=== PATIENT | female | born 1980 | race Caucasian/White ===

== ENCOUNTER 2016-07-13 18:02 | Emergency (ER) | payer OTHER ==
[~2016-07-13] VITALS: Ht 157.5 cm; Wt 73.0 kg
[~2016-07-13 18:02] MED LIST: ALBU8.5H5 INH; FAMO-18 PO; GUAI120S26 PO
[2016-07-13 18:18] VITALS: Ht 157.5 cm; Wt 73.0 kg
[2016-07-13] MEDS ORDERED: KETOROLAC 30 MG INJ IV STA (19:53)
[2016-07-13] MEDS ORDERED: SOD CHLORIDE 0.9% 1,000 ML IV STA (19:53)
[2016-07-13 20:33] LABS: BASOPHIL # 0.1 10^3/ul (0.0-0.1); BASOPHILS % 1.5 % (0.0-2.0); EOSINOPHILS # 0.1 10^3/ul (0.0-0.5); EOSINOPHILS % 0.9 % (0.0-7.0); HEMATOCRIT 33.3 % (37.0-47.0); HEMOGLOBIN 10.8 g/dl (12.0-16.0); LYMPHOCYTES # 1.8 10^3/ul (0.8-2.9); LYMPHOCYTES % 20.8 % (15.0-51.0); MEAN CORPUSCULAR HGB CONC 32.5 g/dl (32.0-37.0); MEAN CORPUSCULAR VOLUME 79.8 fl (82.0-101.0); MEAN PLATELET VOLUME 7.6 fl (7.4-10.4); MONOCYTE # 0.4 10^3/ul (0.3-0.9); MONOCYTES % 4.9 % (0.0-11.0); NEUTROPHIL # 6.3 10^3/ul (1.6-7.5); NEUTROPHILS % 71.9 % (39.0-77.0); PLATELET COUNT 381 10^3/UL (140-440); RED BLOOD COUNT 4.17 10^6/ul (4.20-5.40); UNCORRECTED WBC 8.8 10^3/ul (4.8-10.8); WHITE BLOOD COUNT 8.8 10^3/ul (4.8-10.8)
[2016-07-13 20:34] LABS: ADD UMIC YES; URINE BILIRUBIN (Dip) NEGATIVE (NEGATIVE); URINE BLOOD (Dip) TRACE (NEGATIVE); URINE COLOR LT. YELLOW (YELLOW); URINE GLUCOSE (Dip) NEGATIVE (NEGATIVE); URINE KETONES (Dip) NEGATIVE (NEGATIVE); URINE LEUKOCYTE ESTERASE (Dip) NEGATIVE (NEGATIVE); URINE NITRITE (Dip) NEGATIVE (NEGATIVE); URINE TOTAL PROTEIN (Dip) NEGATIVE (NEGATIVE); URINE UROBILINOGEN (Dip) 0.2 E.U./dL (0.1-1.0)
[2016-07-13 20:42] LABS: ALBUMIN 4.4 g/dl (3.3-4.9)
[2016-07-13 20:43] LABS: POTASSIUM 3.8 mmol/L (3.5-5.1)
[2016-07-13 20:45] LABS: ALBUMIN/GLOBULIN RATIO 1.22; BILIRUBIN,INDIRECT 0.1 mg/dl (0-1.1); BILIRUBIN,TOTAL 0.1 mg/dl (0.2-1.3); CREATININE 0.56 mg/dl (0.44-1.00)
[2016-07-13 20:46] LABS: CALCIUM 9.5 mg/dl (8.4-10.2)
[2016-07-13 20:56] LABS: SQUAMOUS EPITHELIAL CELL,UR FEW
--- NOTE | 2016-07-13 21:04 | RADRPT ---
PROCEDURE: CT abdomen and pelvis without contrast. CLINICAL INDICATION: Right flank pain. There is a question of nephrolithiasis. TECHNIQUE: CT of the abdomen and pelvis without contrast was performed on a multidetector high-res olution CT scanner. Coronal and sagittal reformatted images were obtained from the axial source imag es. Images were reviewed on a high-resolution PACS workstation. The total exam CTDI equals 9.43 mGy and the total exam DLP equals the 527.27 mGy-cm. One or more of the following dose reduction techniques were used: - Automated exposure control. - Adjustment of the mA and/or kV according to patient size. - Use of iterative reconstruction technique. COMPARISON: Abdominal ultrasound dated 01/23/2016. FINDINGS: The visualized lung bases are clear and the visualized heart is unremarkable. The liver is grossly unremarkable. There is no intra or extrahepatic biliary ductal dilatation. The gallbladder, spleen, pancreas, adrenal glands are grossly unremarkable. There is no nephrolithiasi s or hydronephrosis. There is no bowel wall thickening or evidence of obstruction. The appendix is mildly dilated in the right lower quadrant measuring up to 10 mm in diameter, but there is no periappendiceal inflammatory change or fluid. There is no free intraperitoneal air or free fluid. There is no mesenteric or ret roperitoneal adenopathy. The aorta is nonaneurysmal. The uterus, adnexa, and urinary bladder are u nremarkable. There are no concerning osseous lesions. IMPRESSION: 1. Nonspecific dilated appendix measuring up to 10 mm in diameter with no periappendiceal inflammat ory change or fluid. 2. The examination is otherwise unremarkable. RPTAT: HLBP .Maverick Caban MD, MD Date Time Electronically viewed and signed by .Maverick Caban MD, MD on 07/13/2016 21:04 .P/
[2016-07-13 21:13] LABS: CONDITION 1; LH ANALYZER COMMENTS 1
--- NOTE | 2016-07-13 22:40 | ERD ---
ER Documentation Chief Complaint Date/Time DATE: 07/13/16 TIME: 22:33 Chief Complaint RIGHT FLANK PAIN RADIATES TO THE MIDDLE OF THE ABD X 1 WEEK HPI 35 year old female previously healthy presenting with complaints of right lower quadrant pain with radiation to the right flank. Pain is described at pressure- like, aching, constant, 6/10. No exacerbating or alleviating factors. No associated fever, chills, nausea, vomiting, dysuria, hematuria, constipation or diarrhea. She has had the pain for about 1 week and it has been worsening. She is not taking anything for the pain. She is able to tolerate foods and liquids without any problems. ROS All systems reviewed and are negative except as per history of present illness. Medications Home Meds Active Scripts Famotidine* (Pepcid*) 20 Mg Tablet, 20 MG PO BID for 14 Days, TAB Prov:YOEL ISIDRO 01/23/16 Gokbnlflhqg-S-Mhfzmxdazq Hb* (Guaifenesin* DM Syrup) 120 Ml Syrup, 10 ML PO Q4H Y for COUGH, #1 BOTTLE Prov:GENNA RHODES NP 04/03/15 Albuterol Sulfate* (Albuterol Sulfate* HFA) 8.5 Gm Hfa.aer.ad, 1-2 PUFF INH Q4 Y for SHORTNESS OF BREATH, #1 EA Prov:GENNA RHODES NP 04/03/15 Allergies Allergies: Coded Allergies: No Known Allergy (Unverified , 07/13/16) PMhx/Soc History of Surgery: Yes (C/S X1, HERNIA) Anesthesia Reaction: No Hx Neurological Disorder: No Hx Respiratory Disorders: Yes (ASTHMA) Hx Cardiac Disorders: No Hx Psychiatric Problems: No Hx Miscellaneous Medical Probl: Yes (H.PYLORI 2015) Hx Alcohol Use: No Hx Substance Use: No Hx Tobacco Use: No Smoking Status: Never smoker FmHx Family History: No diabetes Physical Exam Vitals Vital Signs Date Time Temp Pulse Resp B/P Pulse Ox O2 Delivery O2 Flow Rate FiO2 07/13/16 18:18 98.6 92 19 130/77 99 Physical Exam Const: Well-appearing, nontoxic, no distress Head: Atraumatic Eyes: Normal Conjunctiva ENT: Normal External Ears, Nose and Mouth. Neck: Full range of motion..~ No meningismus. Resp: Clear to auscultation bilaterally Cardio: Regular rate and rhythm, no murmurs Abd: Soft, mild to moderate right lower quadrant tenderness to palpation without rebound or guarding, non distended. Normal bowel sounds Skin: No petechiae or rashes Back: No midline or flank tenderness Ext: No cyanosis, or edema Neur: Awake and alert Psych: Normal Mood and Affect Result Diagram: 07/13/16201407/13/162014 Results 24 hrs Laboratory Tests Test 07/13/16 20:15 Alanine Aminotransferase (ALT/SGPT) 22IU/L Albumin 4.4g/dl Albumin/Globulin Ratio 1.22 Alkaline Phosphatase 61IU/L Anion Gap 18 Aspartate Amino Transf (AST/SGOT) 28IU/L Basophils # 0.110^3/ul Basophils % 1.5% Blood Morphology Comment Blood Urea Nitrogen 9mg/dl Calcium Level 9.5mg/dl Carbon Dioxide Level 25mmol/L Chloride Level 102mmol/L Creatinine 0.56mg/dl Direct Bilirubin 0.00mg/dl Eosinophils # 0.110^3/ul Eosinophils % 0.9% Globulin 3.60g/dl Glucose Level 91mg/dl Hematocrit 33.3% Hemoglobin 10.8g/dl Indirect Bilirubin 0.1mg/dl Lymphocytes # 1.810^3/ul Lymphocytes % 20.8% Mean Corpuscular Hemoglobin 26.0pg Mean Corpuscular Hemoglobin Concent 32.5g/dl Mean Corpuscular Volume 79.8fl Mean Platelet Volume 7.6fl Monocytes # 0.410^3/ul Monocytes % 4.9% Neutrophils # 6.310^3/ul Neutrophils % 71.9% Nucleated Red Blood Cells # 0.010^3/ul Nucleated Red Blood Cells % 0.0/100WBC Platelet Count 42346^3/UL Potassium Level 3.8mmol/L Red Blood Count 4.1710^6/ul Red Cell Distribution Width 16.0% Sodium Level 141mmol/L Total Bilirubin 0.1mg/dl Total Protein 8.0g/dl Urine Bilirubin NEGATIVE Urine Clarity CLEAR Urine Color LT. YELLOW Urine Glucose NEGATIVE% Urine Hemoglobin TRACE Urine Ketones NEGATIVE Urine Leukocyte Esterase NEGATIVE Urine Microscopic RBC 2-5/HPF Urine Microscopic WBC 0-2/HPF Urine Nitrite NEGATIVE Urine Specific [place] 1.010 Urine Squamous Epithelial Cells FEW Urine Total Protein NEGATIVE Urine Urobilinogen 0.2 E.U./dL Urine pH 6.5 White Blood Count 8.810^3/ul Current Medications Medications (Trade) Dose Ordered Sig/Marlyn Route PRN Reason Start Time Stop Time Status Last Admin Dose Admin Sodium Chloride (NS) 1,000 ml @ 1,000 mls/hr Q1H STAT IV 07/13/16 19:53 07/13/16 20:52 DC 07/13/16 20:02 Ketorolac Tromethamine (Toradol) 30 mg ONCE STAT IV 07/13/16 19:53 07/13/16 19:55 DC 07/13/16 20:02 Procedures/MDM Patient is presenting with right lower quadrant and right flank pain for about 1 week. She is afebrile, well-appearing, with stable vitals. Her urinalysis does not show evidence of UTI. Her labs were unremarkable other than mild anemia. CT of her abdomen and pelvis was done to evaluate for appendicitis versus ureterolithiasis. CT showed evidence of a dilated appendix about 10 mm without associated evidence of infection or appendicolith. Patient has no evidence of leukocytosis. I called and spoke with , the surgeon tongue and groove machine feeder , and he recommended [facility] exams and monitoring for any worsening of her condition, however he stated that she can also go home and return to the ER in 24 hours for repeat abdominal exam. I discussed these options with the patient and she would prefer to go home. She understands the importance of returning for a repeat abdominal exam and the possibility of early appendicitis. She refused any prescription for pain medication. She stated she would return tomorrow for reevaluation or sooner if her symptoms worsened or she developed any new symptoms. Patient was stable upon discharge and tolerating fluids by mouth. Departure Diagnosis: Primary Impression: Abdominal pain, RLQ (right lower quadrant) Condition: Stable Patient Instructions: Abdominal Pain, Possible Appendicitis (Female) Additional Instructions: Return to the ER in 24 hours for a repeat abdominal exa. Return sooner if your symptoms get worse or you have new worrisome symptoms. STEPHANE CALIXTO MD Jul 13, 2016 22:40
== END 2016-07-13 22:05 | disposition home or self-care (01) ==
LOC: FTE 18:02
DX: R10.31 Right lower quadrant pain (principal); J45.909 Unspecified asthma, uncomplicated
CPT/HCPCS: 36415; 74176; 80053; 81001; 85025; 96374; J1885; J7030; Z7502; 81003

== ENCOUNTER 2016-07-14 17:23 | Emergency (ER) | payer OTHER ==
[~2016-07-14] VITALS: Wt 71.0 kg
--- NOTE | 2016-07-14 19:25 | ERD ---
ER Documentation Chief Complaint Date/Time DATE: 07/14/16 TIME: 19:22 Chief Complaint RECHECK FOR AP DENIES AP AT THIS TIME HPI This is a 35-year-old female who presents to the emergency department today for a recheck of abdominal pain that she was seen here for in the emergency department yesterday. Patient had some right lower quadrant and flank pain yesterday. States she doesn't really have any pains and has not taken any Tylenol or Motrin as she doesn't have any pain. Denies fevers or chills, nausea or vomiting. ROS All systems reviewed and are negative except as per history of present illness. Medications Home Meds Active Scripts Famotidine* (Pepcid*) 20 Mg Tablet, 20 MG PO BID for 14 Days, TAB Prov:YOEL ISIDRO 01/23/16 Uertrkoheko-H-Iqwgwhlxje Hb* (Guaifenesin* DM Syrup) 120 Ml Syrup, 10 ML PO Q4H Y for COUGH, #1 BOTTLE Prov:GENNA RHODES NP 04/03/15 Albuterol Sulfate* (Albuterol Sulfate* HFA) 8.5 Gm Hfa.aer.ad, 1-2 PUFF INH Q4 Y for SHORTNESS OF BREATH, #1 EA Prov:GENNA RHODES NP 04/03/15 Allergies Allergies: Coded Allergies: No Known Allergy (Unverified , 07/13/16) PMhx/Soc History of Surgery: Yes (,Hernia Repair,R Wrist Surg) Anesthesia Reaction: No Hx Neurological Disorder: No Hx Respiratory Disorders: Yes (Asthma) Hx Cardiac Disorders: No Hx Psychiatric Problems: No Hx Miscellaneous Medical Probl: Yes Hx Alcohol Use: No Hx Substance Use: No Hx Tobacco Use: No Smoking Status: Never smoker Physical Exam Vitals Vital Signs Date Time Temp Pulse Resp B/P Pulse Ox O2 Delivery O2 Flow Rate FiO2 07/14/16 19:26 98.0 76 20 132/69 99 Room Air 07/14/16 17:25 98.0 78 20 146/65 99 Physical Exam Const: No acute distress Head: Atraumatic Eyes: Normal Conjunctiva ENT: Normal External Ears, Nose and Mouth. Neck: Full range of motion..~ No meningismus. Resp: Clear to auscultation bilaterally Cardio: Regular rate and rhythm, no murmurs Abd: Soft, non tender, non distended. Normal bowel sounds. Right lower quadrant pain. No left lower quadrant pain. Skin: No petechiae or rashes Back: No midline or flank tenderness. No CVA tenderness Neur: Awake and alert Psych: Normal Mood and Affect Procedures/MDM 35-year-old female who presents to the emergency department today for recheck of abdominal pain for which she was seen here in the emergency department yesterday. She was complaining of right lower quadrant pain with radiation to the right flank. She was seen by Dr. Snell yesterday and laboratory work and a CT scan was done. Exception of anemia her labs were unremarkable. She had no elevated white blood cell count. The CT scan that was done showed evidence of a dilated appendix about 10 mm without associated evidence of infection or appendicolith. There was consultation with the surgeon on-call and at the time the decision was made to have the patient return home and return to the emergency department in 24 hours for repeat abdominal exam. Patient indicated that she had some dark urine however her UA was negative yesterday for infection. Patient was instructed to drink more fluids. On physical exam patient has no right lower quadrant tenderness. She has no tenderness in McBurney's. She is afebrile and otherwise well-appearing. She has had no nausea or vomiting. She indicated that she has not really taken any Tylenol or Motrin because she doesn't have any pain. At this time he did not fill the patient requires further laboratory workup or repeat imaging.This time I have low suspicion for any acute surgical abdomen. Patient was given a copy of her CT scan instructed to follow up with her primary care doctor. She was instructed to take Tylenol or Motrin should she have pain and was instructed to return to the emergency department immediately for any worsening of symptoms, fever, nausea or vomiting. At this time the patient is stable for discharge and outpatient management. Patient should follow up with their PCP in the next 1-2 days. They may return to the emergency department sooner for any persistent or worsening of symptoms. Patient understood and agreed with the plan. Discussed the patient with Dr. Aguirre and he is in agreement with the plan. Departure Diagnosis: Primary Impression: Abdominal pain Abdominal location: right lower quadrant Qualified Code: R10.31 - Right lower quadrant abdominal pain Condition: Fair Patient Instructions: Abdominal Pain Referrals: MAL ABDI (PCP) Additional Instructions: Call your primary care doctor TOMORROW for an appointment during the next 1-2 days.See the doctor sooner or return here if your condition worsens before your appointment time. Continue taking the Tylenol or Motrin for pain if needed Return for any worsening of symptoms TUCKER MA PA-C Jul 14, 2016 19:25
[2016-07-14 19:26] VITALS: BP 132/69; PULSE 76; RESP 20; TEMP 98
== END 2016-07-14 19:26 | disposition home or self-care (01) ==
LOC: FTE 17:23
DX: R10.31 Right lower quadrant pain (principal); J45.909 Unspecified asthma, uncomplicated
CPT/HCPCS: 99282

== ENCOUNTER 2016-09-18 10:53 | Emergency (ER) | payer OTHER ==
[~2016-09-18] VITALS: Wt 72.5 kg
[2016-09-18] MEDS ORDERED: ALBUTEROL 0.083% (NEB) 2.5 MG/3 ML AMP HHN STA (11:24)
[2016-09-18] MEDS ORDERED: IPRATROPIUM (NEB) 0.5 MG/2.5 ML AMP HHN ONE (11:30)
[2016-09-18] MEDS ORDERED: DEXAMETHASONE 10 MG/ML 1 ML INJ IM ONE (11:30)
--- NOTE | 2016-09-18 12:57 | RADRPT ---
PROCEDURE: Chest Radiograph. CLINICAL INDICATION: Cough. Wheezing. TECHNIQUE: Single frontal chest radiograph. COMPARISON: Chest radiograph 04/03/2015 FINDINGS: The cardiomediastinal silhouette is within normal limits. No infiltrate or effusion is seen. Th e bones are intact. IMPRESSION: 1. Unremarkable chest radiograph. RPTAT: KK .Gonsalo Mark MD, MD Date Time Electronically viewed and signed by .Gonsalo Mark MD, on 09/18/2016 12:57 .B/
[2016-09-18] MEDS ORDERED: MED4DP PO (13:38)
[2016-09-18] MEDS ORDERED: ALBU8.5H3 INH (13:38)
--- NOTE | 2016-09-18 13:47 | ERD ---
ER Documentation Chief Complaint Date/Time DATE: 09/18/16 TIME: 13:45 Chief Complaint WHEEZING AND COUGHING FOR THE PAST WEEK HPI This is a 36-year-old female presents to the ER with a cough for the last month and a half. Patient states she is also had wheezing. She has a past medical history of asthma. Tried her inhalers however they did not work. Patient states that pain is dry and constant. She denies any fevers or chills. She denies any chest pain. ROS 12 point review of systems was done, all negative except per HPI. Medications Home Meds Active Scripts Albuterol Sulfate* (Proair HFA*) 8.5 Gm Hfa.aer.ad, 2 PUFF INH Q4, #1 INHALER Prov:YOEL ISIDRO 09/18/16 Methylprednisolone* (Medrol* DOSE PACK) 4 Mg/Dose-Pack Tab.ds.pk, 4 MG PO . DIRECTED for 6 Days, PACKET Prov:YOEL ISIDRO 09/18/16 Famotidine* (Pepcid*) 20 Mg Tablet, 20 MG PO BID for 14 Days, TAB Prov:YOEL ISIDRO 01/23/16 Tpsyttvjfnd-S-Hpiwghbddc Hb* (Guaifenesin* DM Syrup) 120 Ml Syrup, 10 ML PO Q4H Y for COUGH, #1 BOTTLE Prov:GENNA RHODES NP 04/03/15 Albuterol Sulfate* (Albuterol Sulfate* HFA) 8.5 Gm Hfa.aer.ad, 1-2 PUFF INH Q4 Y for SHORTNESS OF BREATH, #1 EA Prov:GENNA RHODES NP 04/03/15 Allergies Allergies: Coded Allergies: No Known Allergy (Unverified , 07/13/16) PMhx/Soc History of Surgery: Yes (,Hernia Repair,R Wrist Surg) Anesthesia Reaction: No Hx Neurological Disorder: No Hx Respiratory Disorders: Yes (Asthma) Hx Cardiac Disorders: No Hx Psychiatric Problems: No Hx Miscellaneous Medical Probl: Yes Hx Alcohol Use: No Hx Substance Use: No Hx Tobacco Use: No Smoking Status: Never smoker Physical Exam Vitals Vital Signs Date Time Temp Pulse Resp B/P Pulse Ox O2 Delivery O2 Flow Rate FiO2 09/18/16 11:37 85 20 96 21 3/29/17 11:05 98.4 83 21 129/73 99 Physical Exam GENERAL: The patient is well-developed, well-nourished, in no acute distress. NECK: Cervical spine is non tender with no step off. Supple, no nuchal rigidity HEENT: Atraumatic. Pupils equal, round and reactive to light. Extraocular muscles are grossly intact. Conjunctivae pink, no discharge. Bilateral tympanic membranes are clear with no evidence of erythema, effusion or dulling of the light reflex. Tonsilar erythema with no exudates or uvular deviation. Clear rhinorrhea. RESPIRATORY: expiratory wheezes in all lung irving. No rales rhonchi or crackles. HEART: Regular rate and rhythm. No murmurs, clicks, rubs or gallops. EXTREMITIES: No clubbing or cyanosis. Full range of motion. Grossly neurovascularly intact. NEUROLOGIC: Alert and oriented. SKIN: There is no rash. The skin is warm and dry. Results 24 hrs Current Medications Medications (Trade) Dose Ordered Sig/Marlyn Route PRN Reason Start Time Stop Time Status Last Admin Dose Admin Albuterol (Proventil 0.083% (Neb)) 10 mg ONCE STAT HHN 09/18/16 11:24 09/18/16 11:27 DC 09/18/16 11:36 Ipratropium [place] (Atrovent 0.02% (Neb)) 0.5 mg ONCE ONCE HHN 09/18/16 11:30 09/18/16 11:31 DC 09/18/16 11:36 Dexamethasone (Decadron) 10 mg ONCE ONCE IM 09/18/16 11:30 09/18/16 11:31 DC 09/18/16 11:37 Procedures/MDM Differential diagnosis includes but is not limited to; Viral URI, allergic rhinitis, bronchitis, bronchiolitis, pertussis, croup, pneumonia. She likely has bronchitis, with an asthma exacerbation. Clinical suspicion for pneumonia is low as child appears well, is not hypoxic or in any respiratory distress. Additionally, smitha physical examination is benign. Child is stable for outpatient follow up. Plan was discussed with parents they understand and agree. Child needs to follow up with PCP within 1-2 days, or return to ER if symptoms worsen. Departure Diagnosis: Primary Impression: Bronchitis Condition: Stable Patient Instructions: Bronchitis With Wheezing (Adult) Additional Instructions: Call your primary care doctor PATELORROW for an appointment during the next 1-2 days.See the doctor sooner or return here if your condition worsens before your appointment time. YOEL ISIDRO Sep 18, 2016 13:47
[2016-09-18 13:49] VITALS: BP 125/68; PULSE 88; RESP 18
== END 2016-09-18 13:51 | disposition home or self-care (01) ==
LOC: FTE 10:53
DX: J20.9 Acute bronchitis, unspecified (principal); J45.901 Unspecified asthma with (acute) exacerbation
CPT/HCPCS: 71010; 94664; 96372; J1100; Z7502; Z7610

== ENCOUNTER 2016-11-23 11:36 | Emergency (ER) | payer OTHER ==
[~2016-11-23] VITALS: Ht 157.5 cm; Wt 73.0 kg
[~2016-11-23 11:36] MED LIST changes: +ALBU8.5H3 INH; +MED4DP PO
[2016-11-23 11:48] VITALS: Ht 157.5 cm; Wt 73.0 kg
[2016-11-23] MEDS ORDERED: TRAM50TA2 PO (12:49)
--- NOTE | 2016-11-23 12:52 | ERD ---
ER Documentation Chief Complaint Date/Time DATE: 11/23/16 TIME: 12:50 Chief Complaint r arm pain x 3 days HPI This 28-year-old female complains of pain in her right forearm for last 3 days. She does do repetitive motion but denies any fall or history of trauma. Patient has a history of carpal tunnel on the left and is concerned this may be carpal tunnel on the right. She has no weakness, fevers, additional symptoms. ROS All systems reviewed and are negative except as per history of present illness. Medications Home Meds Active Scripts Tramadol HCl (Tramadol HCl) 50 Mg Tablet, 50 MG PO Q4 Y for PAIN, #20 TAB Prov:TALIA VILLALPANDO MD 11/23/16 Albuterol Sulfate* (Proair HFA*) 8.5 Gm Hfa.aer.ad, 2 PUFF INH Q4, #1 INHALER Prov:YOEL ISIDRO 09/18/16 Methylprednisolone* (Medrol* DOSE PACK) 4 Mg/Dose-Pack Tab.ds.pk, 4 MG PO . DIRECTED for 6 Days, PACKET Prov:YOEL ISIDRO 09/18/16 Famotidine* (Pepcid*) 20 Mg Tablet, 20 MG PO BID for 14 Days, TAB Prov:YOEL ISIDRO 01/23/16 Filcyvfwkhr-S-Yrqxepsvht Hb* (Guaifenesin* DM Syrup) 120 Ml Syrup, 10 ML PO Q4H Y for COUGH, #1 BOTTLE Prov:GENNA RHODES NP 04/03/15 Albuterol Sulfate* (Albuterol Sulfate* HFA) 8.5 Gm Hfa.aer.ad, 1-2 PUFF INH Q4 Y for SHORTNESS OF BREATH, #1 EA Prov:GENNA RHODES NP 04/03/15 Allergies Allergies: Coded Allergies: No Known Allergy (Unverified , 11/23/16) PMhx/Soc History of Surgery: Yes (,Hernia Repair,R Wrist Surg) Anesthesia Reaction: No Hx Neurological Disorder: No Hx Respiratory Disorders: Yes (Asthma) Hx Cardiac Disorders: No Hx Psychiatric Problems: No Hx Miscellaneous Medical Probl: Yes Hx Alcohol Use: No Hx Substance Use: No Hx Tobacco Use: No Smoking Status: Never smoker Physical Exam Vitals Vital Signs Date Time Temp Pulse Resp B/P Pulse Ox O2 Delivery O2 Flow Rate FiO2 11/23/16 11:48 98.0 77 14 142/83 98 Physical Exam Const: [] Alert, not ill-appearing. Head: Atraumatic Eyes: Normal Conjunctiva ENT: Normal External Ears, Nose and Mouth. Neck: Full range of motion..~ No meningismus. Resp: Clear to auscultation bilaterally Cardio: Regular rate and rhythm, no murmurs Abd: Soft, non tender, non distended. Normal bowel sounds Skin: No petechiae or rashes Back: No midline or flank tenderness Ext: No cyanosis, or edema. Minimal tenderness of the right forearm muscles. No erythema, tenderness or deformities. Pulses are 2+ distally. No evidence of tendon or neurologic deficits. Neur: Awake and alert Psych: Normal Mood and Affect Procedures/MDM Patient presents with right forearm pain of uncertain etiology. It appears to be muscle skeletal suggesting some type of strain or tendinitis given her history of repetitive motion. Signs and symptoms and history did not suggest fracture, dislocation, infection, and there is no evidence of ischemia, neurologic or tendon deficit. She will be treated with an Tim bandage for compression of the forearm muscles and tramadol for pain. She is advised to follow-up with primary doctor possible orthopedist for persistent symptoms or for new or worsening symptoms. Departure Diagnosis: Primary Impression: Pain of right arm Condition: Stable Patient Instructions: Muscle Strain, Extremity, Tendonitis Additional Instructions: Likely strain or tendinitis. Recheck for fevers, new or worsening symptoms with primary care doctor and orthopedist for persistent or worsening symptoms. TALIA VILLALPANDO MD Nov 23, 2016 12:52
== END 2016-11-23 13:04 | disposition home or self-care (01) ==
LOC: FTE 11:36
DX: M79.601 Pain in right arm (principal); J45.909 Unspecified asthma, uncomplicated
CPT/HCPCS: 99283

== ENCOUNTER 2016-12-19 09:43 | Emergency (ER) | payer OTHER ==
[~2016-12-19] VITALS: Ht 157.5 cm; Wt 73.5 kg
[~2016-12-19 09:43] MED LIST changes: +TRAM50TA2 PO
[2016-12-19 09:48] VITALS: Ht 157.5 cm; Wt 73.5 kg
[2016-12-19 10:20] LABS: URINE BLOOD (Dip) POC 2+ (NEGATIVE)
--- NOTE | 2016-12-19 10:20 | ERD ---
ER Documentation Chief Complaint Date/Time DATE: 12/19/16 TIME: 10:19 Chief Complaint Complina of hematuria and burning when urinating HPI She is a 36-year-old female with no past medical history who presents to the ED with dysuria and hematuria since this morning. Denies fever or chills. Denies back pain. Denies abdominal pain, nausea, vomiting or diarrhea. Denies headache or dizziness or chest pain. States that she has had a UTI in the past. No other complaints. ROS All systems reviewed and are negative except as per history of present illness. Medications Home Meds Active Scripts Nitrofurantoin Monohyd Macrocr* (Macrobid*) 100 Mg Capsr, 100 MG PO BID for 7 Days, CAP Prov:JESSICA BROWN PA-C 12/19/16 Tramadol HCl (Tramadol HCl) 50 Mg Tablet, 50 MG PO Q4 Y for PAIN, #20 TAB Prov:TALIA VILLALPANDO MD 11/23/16 Albuterol Sulfate* (Proair HFA*) 8.5 Gm Hfa.aer.ad, 2 PUFF INH Q4, #1 INHALER Prov:YOEL ISIDRO 09/18/16 Methylprednisolone* (Medrol* DOSE PACK) 4 Mg/Dose-Pack Tab.ds.pk, 4 MG PO . DIRECTED for 6 Days, PACKET Prov:YOEL ISIDRO 09/18/16 Famotidine* (Pepcid*) 20 Mg Tablet, 20 MG PO BID for 14 Days, TAB Prov:YOEL ISIDRO 01/23/16 Btlemhgjyqf-U-Issngipypv Hb* (Guaifenesin* DM Syrup) 120 Ml Syrup, 10 ML PO Q4H Y for COUGH, #1 BOTTLE Prov:GENNA RHODES NP 04/03/15 Albuterol Sulfate* (Albuterol Sulfate* HFA) 8.5 Gm Hfa.aer.ad, 1-2 PUFF INH Q4 Y for SHORTNESS OF BREATH, #1 EA Prov:GENNA RHODES NP 04/03/15 Allergies Allergies: Coded Allergies: No Known Allergy (Unverified , 11/23/16) PMhx/Soc History of Surgery: Yes (,Hernia Repair,R Wrist Surg) Anesthesia Reaction: No Hx Neurological Disorder: No Hx Respiratory Disorders: Yes (Asthma) Hx Cardiac Disorders: No Hx Psychiatric Problems: No Hx Miscellaneous Medical Probl: Yes Hx Alcohol Use: No Hx Substance Use: No Hx Tobacco Use: No FmHx Family History: No coronary disease, No diabetes, No other Physical Exam Vitals Vital Signs Date Time Temp Pulse Resp B/P Pulse Ox O2 Delivery O2 Flow Rate FiO2 12/19/16 09:48 96.8 76 20 128/81 98 Physical Exam GENERAL: Well-developed, well-nourished female. Appears in no acute distress. LUNG: Clear to auscultation bilaterally. No rhonchi, wheezing, rales or coarse breath sounds. HEART: Regular rate and rhythm. No murmurs, rubs or gallops. ABDOMEN: No scars, ecchymosis or rashes noted. Soft, nontender, and nondistended. Positive bowel sounds in all four quadrants. No rebound tenderness , no guarding. (-) McBurneys point tenderness. No CVA tenderness. BACK: No midline tenderness. Extremities: Equal pulses bilaterally. No peripheral clubbing, cyanosis or edema. No unilateral leg swelling. NEUROLOGIC: Alert and oriented. Moving all four extremities. 5/5 strength in all extremities. Normal speech. Steady gait. SKIN: Normal color. Warm and dry. No rashes or lesions. Capillary refill < 2 seconds Results 24 hrs Laboratory Tests Test 12/19/16 10:25 Bedside Urine pH (LAB) 5.5 Bedside Urine Protein (LAB) Negative Bedside Urine Glucose (UA) Negative Bedside Urine Ketones (LAB) Negative Bedside Urine Blood 2+ Bedside Urine Nitrite (LAB) Negative Bedside Urine Leukocyte Esterase (L Negative Procedures/MDM ER COURSE: I kept the patient and/or family informed of laboratory and diagnostic imaging results throughout the emergency room course. LABORATORY STUDIES Urine was negative for nitrites, leukocytes. Negative test MEDICAL DECISION MAKING: This is a 36-year-old who presents with dysuria and hematuria 1 day. Vital signs were reviewed. Patient is afebrile. Patient is not hypoxic. Patient is nontoxic or ill-appearing. Patient's urine does not show signs of a UTI however patient is symptomatic and I will be treating the patient for cystitis. Low suspicion for ovarian torsion, PID, tuboovarian abscess, ectopic , bowel obstruction, pyelonephritis, UTI, appendicitis, cervicitis, septic , molar , HELLP syndrome, preeclampsia, eclampsia, placenta previa, placenta abruptia. DISCHARGE: At this time, patient is stable for discharge and outpatient management with no new complaints during the ER course. Patient was sent home with Macrobid. Patient will be discharged home with instructions to recheck for new or worsening symptoms such as fever, nausea, weakness, LOC and to follow up with primary care in the next 1-2 days. Patient was advised to return to the ER for any new or worsening symptoms. Plan was discussed and patient and/or family understands and agrees. Home instructions were given. Departure Diagnosis: Primary Impression: Dysuria Condition: Stable JESSICA BROWN PA-C Dec 19, 2016 10:20
[2016-12-19] MEDS ORDERED: NITR-58 PO (10:29)
[2016-12-19 10:44] VITALS: TEMP 98.3
== END 2016-12-19 10:45 | disposition home or self-care (01) ==
LOC: FTE 09:43
DX: R30.0 Dysuria (principal); J45.909 Unspecified asthma, uncomplicated
CPT/HCPCS: 81003; Z7502; 99283

== ENCOUNTER 2017-02-14 02:46 | Emergency (ER) | payer OTHER ==
[~2017-02-14] VITALS: Ht 162.6 cm; Wt 74.5 kg
[~2017-02-14 02:46] MED LIST changes: -FAMO-18 PO; +FAMO-96 PO; +NITR-58 PO
[2017-02-14 02:51] VITALS: Ht 162.6 cm; Wt 74.5 kg
--- NOTE | 2017-02-14 03:46 | ERD ---
ER Documentation Chief Complaint Date/Time DATE: 02/14/17 TIME: 03:42 Chief Complaint dizziness x 2 days HPI This 36-year-old female presents to emergency department with 2 days hx of subjective dizziness , " feels like Im drunk". reports allergy symptoms on and off week, nasal congestion frontal headache, postnasal drip, decreased taste sensation and clogged ears. Patient denies any chest pain, palpitations, or shortness of breath ROS All systems reviewed and are negative except as per history of present illness. Medications Home Meds Active Scripts Sodium Chloride ([place]) 104 Ml [place], 1 SPRAY NASAL PRN Y for NASAL CONGESTION, #1 BOTTLE Prov:JUAN C,KRISTEN 02/14/17 Meclizine Hcl* (Antivert*) 12.5 Mg Tab, 25 MG PO Q6H Y for DIZZINESS, #20 TAB Prov:JUAN C,KRISTEN 02/14/17 Amoxicillin* (Amoxicillin*) 500 Mg Cap, 500 MG PO TID for 10 Days, CAP Prov:JUAN C,KRISTEN 02/14/17 Nitrofurantoin Monohyd Macrocr* (Macrobid*) 100 Mg Capsr, 100 MG PO BID for 7 Days, CAP Prov:JESSICA BROWNC 12/19/16 Tramadol HCl (Tramadol HCl) 50 Mg Tablet, 50 MG PO Q4 Y for PAIN, #20 TAB Prov:TALIA VILLALPANDO MD 11/23/16 Albuterol Sulfate* (Proair HFA*) 8.5 Gm Hfa.aer.ad, 2 PUFF INH Q4, #1 INHALER Prov:YOEL ISIDRO 09/18/16 Methylprednisolone* (Medrol* DOSE PACK) 4 Mg/Dose-Pack Tab.ds.pk, 4 MG PO . DIRECTED for 6 Days, PACKET Prov:YOEL ISIDRO 09/18/16 Famotidine* (Pepcid*) 20 Mg Tablet, 20 MG PO BID for 14 Days, TAB Prov:YOEL ISIDRO 01/23/16 Mgudsfnqqku-K-Jepyutvqas Hb* (Guaifenesin* DM Syrup) 120 Ml Syrup, 10 ML PO Q4H Y for COUGH, #1 BOTTLE Prov:GENNA RHODES NP 04/03/15 Albuterol Sulfate* (Albuterol Sulfate* HFA) 8.5 Gm Hfa.aer.ad, 1-2 PUFF INH Q4 Y for SHORTNESS OF BREATH, #1 EA Prov:GENNA RHODES NP 04/03/15 Allergies Allergies: Coded Allergies: No Known Allergy (Unverified , 11/23/16) PMhx/Soc History of Surgery: Yes (,Hernia Repair,R Wrist Surg) Anesthesia Reaction: No Hx Neurological Disorder: No Hx Respiratory Disorders: Yes (Asthma) Hx Cardiac Disorders: No Hx Psychiatric Problems: No Hx Miscellaneous Medical Probl: Yes Hx Alcohol Use: No Hx Substance Use: No Hx Tobacco Use: No Physical Exam Vitals Vital Signs Date Time Temp Pulse Resp B/P Pulse Ox O2 Delivery O2 Flow Rate FiO2 02/14/17 02:51 97.8 76 20 142/78 100 Vitals stable, triage notes reviewed Physical Exam Const: Well-nourished well-hydrated well-appearing no acute distress Head: Atraumatic Eyes: Normal Conjunctiva PERRLA, EOMI ENT: Bilateral tympanic membranes translucent, auditory canals are clear, nasal mucosa edematous with right turbinates +3 purulent discharge and maxillary tenderness, left turbinates +2. Pharynx pink uvula midline no shift rises and falls with pronation. Neck: Full range of motion..~ No meningismus. Resp: Clear to auscultation bilaterally, no rales wheezes or rhonchi Cardio: Abd: Skin: Back: Ext: Neur: Awake and alert Psych: Normal Mood and Affect Results 24 hrs Current Medications Medications (Trade) Dose Ordered Sig/Marlyn Route PRN Reason Start Time Stop Time Status Last Admin Dose Admin Meclizine HCl (Antivert) 12.5 mg ONCE ONCE PO 02/14/17 04:00 02/14/17 04:01 DC 02/14/17 03:59 Procedures/MDM This pleasant 36-year-old female presents to emergency department with dizziness , nasal congestion, frontal headache and clogged ears. Patient reports allergy symptoms for the last several weeks, worsening with dizziness and headache last 2 days. I have low suspicion meningitis, subarachnoid bleed, subdural hematoma , or mastoiditis. Patient's emergency room treatment includes meclizine, physical exam findings support a sinusitis, plan to discharge patient home with amoxicillin 500 mg 3 times daily 10 days, nasal saline as needed, and meclizine 25 mg 1 tab p.o. every 6 hours as needed okay to split pill in half if medication causes drowsiness. Increase fluids, increase rest, follow-up with primary care physician for allergic rhinitis treatment. Patient is stable with no new complaints during ER course, clinically there is no current evidence to suggest meningitis, sepsis, acute abdomen, acute coronary syndromes , pulmonary embolism or any other emergent condition appearing to require further evaluation or hospitalization. I feel the patient is stable for discharge at this time. I have discussed results, examination findings, the treatment plan with the patient and family present prior to discharge. Indications for emergent reevaluation, side effects of medication were also discussed. All questions were answered. Patient verbalizes understanding and agrees with plan of care. Departure Diagnosis: Primary Impression: Sinusitis, acute Sinusitis location: maxillary Recurrence: not specified as recurrent Qualified Code: J01.00 - Acute maxillary sinusitis, recurrence not specified Condition: Good Patient Instructions: Acute Sinusitis Referrals: [facility] Additional Instructions: Thank you for for coming to [facility] for your care today. Please ask your nurse or provider if you have questions about your care today and do not leave until all your questions have been answered. Please use any medications given as directed and follow-up with your doctor (or the doctor you were referred to) in the next 2-3 days. If you do not have a primary care doctor you may follow up at the [facility] (listed below). You may also use motrin and tylenol as needed for fever and/or pain unless instructed otherwise by your provider or nurse. Indications for more urgent follow-up have been discussed, but you may return to the Emergency Department at ANY time for any worrisome or worsening symptoms. If you have abdominal pain, please know that no test or exam you received is perfect and you should follow up within 8 hours for continued pain. If you had any imaging studies today, such as an X-Ray or CT Scan, these studies will be reviewed later by a radiologist. You will be called if there are important findings that were not identified today, so make sure the contact information you provided at registration is correct. If you received any narcotic pain control medicine today, such as Vicodin, Morphine or Dilaudid, your coordination and judgment may be affected for a number of hours. Please do not drive or operate heavy machinery, and you may want someone to assist you at home. If you were given a prescription for narcotic medication, be aware that it is very addictive- use sparingly and only if necessary. KRISTEN IRIZARRY Feb 14, 2017 03:45
[2017-02-14] MEDS ORDERED: MECLIZINE 12.5 MG TAB PO ONE (04:00)
[2017-02-14] MEDS ORDERED: AMO500 PO (04:34)
[2017-02-14] MEDS ORDERED: MECL12.574 PO (04:34)
[2017-02-14] MEDS ORDERED: SODI104S2 NASAL (04:35)
== END 2017-02-14 04:46 | disposition home or self-care (01) ==
LOC: FTE 02:46
DX: J01.00 Acute maxillary sinusitis, unspecified (principal); J45.909 Unspecified asthma, uncomplicated
CPT/HCPCS: Z7502; Z7610; 99283

== ENCOUNTER 2017-06-29 18:42 | Emergency (ER) | END 2017-06-29 19:15 | disposition home or self-care (01) ==

== ENCOUNTER 2017-07-03 22:02 | Emergency (ER) | END 2017-07-04 02:20 | disposition home or self-care (01) ==

== ENCOUNTER 2017-11-05 16:45 | Emergency (ER) | END 2017-11-05 18:51 | disposition home or self-care (01) ==

== ENCOUNTER 2017-12-16 09:10 | Emergency (ER) | END 2017-12-16 11:05 | disposition home or self-care (01) ==

== ENCOUNTER 2017-12-18 07:33 | Emergency (ER) | END 2017-12-18 08:50 | disposition home or self-care (01) ==

== ENCOUNTER 2018-08-16 13:25 | Emergency (ER) | payer OTHER ==
[~2018-08-16] VITALS: Ht 165.1 cm; Wt 78.7 kg
[~2018-08-16 13:25] MED LIST changes: -ALBU8.5H3 INH; +ALBU8.5H8 INH; +AMOX1TAB10 PO; +AMOX500C2 PO; +CEPH-443 PO; +HYDR-3980 PO; +IBUP-1542 PO; +MECL12.574 PO; +SODI104S2 NASAL; +SULF1TAB31 PO
[2018-08-16 13:31] VITALS: BP 137/81; PULSE 86; RESP 18; Ht 165.1 cm; Wt 78.7 kg
[2018-08-16] MEDS ORDERED: DOXY100T21 PO (14:38)
[2018-08-16] MEDS ORDERED: GEN3OPOI RIGHT EYE (14:38)
--- NOTE | 2018-08-16 14:41 | ERD ---
ER Documentation Chief Complaint Chief Complaint right eye pain/swelling x 4 days HPI 37-year-old female presents with some redness and swelling below her right eye in her lower lid for last 4 days. Denies contact lens use, visual changes, significant pain. ROS All systems reviewed and are negative except as per history of present illness. Medications Home Meds Active Scripts Gentamicin Sulfate* ([place]* Ophth) 3.5 Gm Oint, 1 APPLIC RIGHT EYE TID for 7 Days, TUB Prov:TALIA VILLALPANDO MD 08/16/18 Doxycycline Monohydrate* (Doxycycline Monohydrate*) 100 Mg Tablet, 100 MG PO BID for 7 Days, TAB Prov:TALIA VILLALPANDO MD 08/16/18 Ibuprofen* (Motrin*) 600 Mg Tab, 600 MG PO Q6, #30 TAB Prov:TUCKER MA-C 12/16/17 Cephalexin* (Keflex*) 500 Mg Capsule, 500 MG PO QID for 7 Days, CAP Prov:TUCKER MA-C 12/16/17 Sulfamethoxazole/Trimethoprim* (Bactrim Ds* Tablet) 1 Each Tablet, 1 TAB PO BID for 7 Days, #14 TAB Prov:TUCKER MA-C 12/16/17 Ibuprofen* (Motrin*) 600 Mg Tab, 600 MG PO Q6, #20 TAB Prov:TALIA VILLALPANDO MD 11/05/17 Hydrocodone/Acetaminophen ([place] 10-325 Tablet) 1 Each Tablet, 1 TAB PO Q8 PRN for PAIN, #20 TAB Prov:JUAN CKRISTEN 07/04/17 Tramadol HCl (Tramadol HCl) 50 Mg Tablet, 50 MG PO Q6 PRN for SEVERE PAIN LEVEL 7-10, #20 TAB Prov:GENNA RHODES NP 06/29/17 Ibuprofen* (Motrin*) 600 Mg Tab, 600 MG PO Q6H PRN for PAIN AND OR ELEVATED TEMP, #30 TAB Prov:GENNA RHODES NP 06/29/17 Amoxicillin/Potassium Clav (Amox-Clav 875-125 mg Tablet) 875-125 mg Tab, 1 TAB PO BID for 10 Days, #20 TAB Prov:GENNA RHODES NP 06/29/17 Sodium Chloride ([place]) 104 Ml [place], 1 SPRAY NASAL PRN PRN for NASAL CONGESTION, #1 BOTTLE Prov:JUAN C,KRISTEN 02/14/17 Meclizine Hcl* (Antivert*) 12.5 Mg Tab, 25 MG PO Q6H PRN for DIZZINESS, #20 TAB Prov:JUAN C,KRISTEN 02/14/17 Amoxicillin* (Amoxicillin*) 500 Mg Cap, 500 MG PO TID for 10 Days, CAP Prov:JUAN C,KRISTEN 02/14/17 Nitrofurantoin Monohyd Macrocr* (Macrobid*) 100 Mg Capsr, 100 MG PO BID for 7 Days, CAP Prov:JESSICA BROWN PA-C 12/19/16 Tramadol HCl (Tramadol HCl) 50 Mg Tablet, 50 MG PO Q4 PRN for PAIN, #20 TAB Prov:TALIA VILLALPANDO MD 11/23/16 Albuterol Sulfate* (Proair HFA*) 8.5 Gm Hfa.aer.ad, 2 PUFF INH Q4, #1 INHALER Prov:SANNAYOEL Johns 09/18/16 Methylprednisolone* (Medrol* DOSE PACK) 4 Mg/Dose-Pack Tab.ds.pk, 4 MG PO . DIRECTED for 6 Days, PACKET Prov:JATIN ISIDROLANDRY Johns 09/18/16 Famotidine* (Pepcid*) 20 Mg Tablet, 20 MG PO BID for 14 Days, TAB Prov:JATIN ISIDROLANDRY Johns 01/23/16 Zthsmcnehxl-K-Tzyzqucbbe Hb* (Guaifenesin* DM Syrup) 120 Ml Syrup, 10 ML PO Q4H PRN for COUGH, #1 BOTTLE Prov:GENNA RHODES NP 04/03/15 Albuterol Sulfate* (Albuterol Sulfate* HFA) 8.5 Gm Hfa.aer.ad, 1-2 PUFF INH Q4 PRN for SHORTNESS OF BREATH, #1 EA Prov:GENNA RHODES NP 04/03/15 Allergies Allergies: Coded Allergies: No Known Allergy (Unverified , 12/16/17) PMhx/Soc History of Surgery: Yes (,Hernia Repair,R Wrist Surg) Anesthesia Reaction: No Hx Neurological Disorder: No Hx Respiratory Disorders: Yes (Asthma) Hx Cardiac Disorders: No Hx Psychiatric Problems: No Hx Miscellaneous Medical Probl: Yes Hx Alcohol Use: No Hx Substance Use: No Hx Tobacco Use: No FmHx Family History: No diabetes, No coronary disease, No other Physical Exam Vitals Vital Signs Date Temp Pulse Resp B/P (MAP) Pulse Ox O2 O2 Flow FiO2 Time Delivery Rate 08/16/18 98.9 86 18 137/81 99 13:31 (99) Physical Exam Const: No acute distress Head: Atraumatic Eyes: Normal Conjunctiva. Right lower lid with a pointing pustule and swelling. No proptosis, abnormal abdomens. The globe is normal and eyes are PERRLA and extraocular movements intact. ENT: Normal External Ears, Nose and Mouth. Neck: Full range of motion. No meningismus. Resp: Clear to auscultation bilaterally Cardio: Regular rate and rhythm, no murmurs Abd: Soft, non tender, non distended. Normal bowel sounds Skin: No petechiae or rashes Back: No midline or flank tenderness Ext: No cyanosis, or edema Neur: Awake and alert Psych: Normal Mood and Affect Procedures/MDM Patient presents with a stye in the right lower lid without signs of orbital or preseptal cellulitis. There is no involvement of the globe or visual changes. Procedure note-using an 18-gauge needle the external stye was lanced and a small amount of pus was expressed. Tolerated procedure well. Patient was discharged home with gentamicin ointment, doxycycline, instructions for warm compresses and return precautions for worsening redness, fevers visual changes, new worsening symptoms. Patient has no signs or symptoms of visual changes, visual field deficits. There are no signs or symptoms to suggest orbital cellulitis, retinal detachment, optic neuritis, retinal artery ischemia, dendritic lesions, ulcers, threats to vision or additional eye emergencies. Doubt acute glaucoma. Patient will be discharged home with recommendations for primary care and ophthalmology follow- up within the next 1-2 days. They should otherwise return to the ER for persistent or worsening symptoms. Departure Diagnosis: Primary Impression: Sty Laterality: right Eyelid: lower Qualified Codes: H00.012 - Hordeolum externum right lower eyelid Condition: Stable Patient Instructions: Sty Additional Instructions: Warm compresses at home. Recheck for worsening swelling, fevers, new worsening symptoms. TALIA VILLALPANDO MD Aug 16, 2018 14:41
== END 2018-08-16 14:52 | disposition home or self-care (01) ==
LOC: FTE 13:25
DX: H00.012 Hordeolum externum right lower eyelid (principal); J45.909 Unspecified asthma, uncomplicated
CPT/HCPCS: 67700; Z7502